=== PATIENT | female | born 1965 | race Caucasian/White ===

== ENCOUNTER → 2016-11-29 | Day surgery (SDC) | payer OTHER ==
[~2016-11-29] MED LIST: Lactated Ringers 1,000 ML IV SCH; Lidocaine 2% 100 MG/5 ML Syringe IVPUSH ONE; Midazolam 1 MG/ML 2 ML SDV IV ONE; Propofol 200 MG/20 ML SDV IV ONE
--- NOTE | 2016-11-29 08:49 | PCM.OPNOTE ---
- General Post-Op/Procedure Note Date of Surgery/Procedure: 11/29/16 Operative Procedure(s): c scope with bx Findings: rectal polyp Pre Op Diagnosis: colon cancer screening Post-Op Diagnosis: rectal polyp Anesthesia Technique: MAC Primary Surgeon: Ted Lou Anesthesia Provider: Britni Segura Pathology: rectal polyp Complications: None Condition: Good Free Text/Narrative:: see dictation
--- NOTE | 2016-11-29 10:15 | OR ---
DATE OF OPERATION: 11/29/2016 SURGEON: Ted Lou MD PROCEDURE PERFORMED: Colonoscopy with cold forceps biopsy. PREOPERATIVE DIAGNOSIS: Screening C scope. POSTOPERATIVE DIAGNOSIS: Rectal polyp. INDICATIONS FOR PROCEDURE: This is a 51-year-old white female, referred for her initial screening colonoscopy. She was offered and accepted the same. She does have a family history of colon cancer with a cousin having the disease in colon polyp with a sister. DESCRIPTION OF OPERATION: After an excellent IV sedation was administered, digital rectal exam was performed. No marked abnormality was noted. The flexible colonoscope was inserted and advanced to the cecum without difficulty. The following findings were noted. Ascending colon, unremarkable. Transverse colon, unremarkable. Descending colon, unremarkable. Sigmoid, unremarkable. Rectum at approximately 10 cm, had a small polyp, biopsied with the cold biopsy forceps, and sent for permanent. It measured roughly about 2 mm in size. Colon was deflated. The scope was removed. The patient tolerated the procedure well and was taken to recovery room in good condition. /[id number] /MODL
[2016-11-29 10:45] VITALS: BP 104/67
== END | disposition home or self-care (01) ==
LOC: FB.SDS 06:44
PROVIDERS: ATTEND Surgery
DX: Z12.11 Encounter for screening for malignant neoplasm of colon (principal); D12.8 Benign neoplasm of rectum; E78.5 Hyperlipidemia, unspecified; E66.9 Obesity, unspecified; Z68.30 Body mass index [BMI] 30.0-30.9, adult; Z88.0 Allergy status to penicillin; Z88.1 Allergy status to other antibiotic agents; Z88.2 Allergy status to sulfonamides; Z88.8 Allergy status to other drugs, medicaments and biological substances; Z79.82 Long term (current) use of aspirin; Z79.899 Other long term (current) drug therapy; Z90.710 Acquired absence of both cervix and uterus; Z98.890 Other specified postprocedural states
CPT/HCPCS: 45380; 88305; J2250; J2704; J7120

== ENCOUNTER 2023-02-24 06:55 | Day surgery (SDC) | payer OTHER ==
[~2023-02-24 06:55] MED LIST changes: -Lidocaine 2% 100 MG/5 ML Syringe IVPUSH ONE; -Midazolam 1 MG/ML 2 ML SDV IV ONE; -Propofol 200 MG/20 ML SDV IV ONE; +Sodium Chloride 0.9% 10 ML Syringe FLUSH PRN
[2023-02-24] MEDS ORDERED: Lidocaine 2% 5 ML SDV IV ONE (06:56)
[2023-02-24] MEDS ORDERED: Propofol 200 MG/20 ML SDV IV ONE (06:56)
[2023-02-24] MEDS ORDERED: Simethicone Drops 40 MG/0.6 ML 30 ML Bottle ONE (08:08)
[2023-02-24 11:44] VITALS: BP 95/58; PULSE 67
== END 2023-02-24 09:30 | disposition home or self-care (01) ==
LOC: FB.SDS 06:55
PROVIDERS: ATTEND Surgery
DX: Z12.11 Encounter for screening for malignant neoplasm of colon (principal); Q43.8 Other specified congenital malformations of intestine; E78.5 Hyperlipidemia, unspecified; R94.5 Abnormal results of liver function studies; R21 Rash and other nonspecific skin eruption; E66.9 Obesity, unspecified; Z86.010 Personal history of colon polyps; Z80.0 Family history of malignant neoplasm of digestive organs; Z79.899 Other long term (current) drug therapy; Z88.0 Allergy status to penicillin; Z88.1 Allergy status to other antibiotic agents; Z88.2 Allergy status to sulfonamides; Z88.8 Allergy status to other drugs, medicaments and biological substances; Z68.36 Body mass index [BMI] 36.0-36.9, adult
CPT/HCPCS: 00811; A9270-GY; J2704; J7120